=== PATIENT | female | born 1940 | race Caucasian/White ===

== ENCOUNTER 2019-01-05 17:41 | Inpatient (IN) | payer MEDICARE ==
--- NOTE | 2019-01-05 18:53 | RAD ---
PORTABLE CHEST: 01/05/19 HISTORY: Mental status change. COMPARISON: 02/14/18. Heart size is upper normal and stable. Vascular markings are mildly prominent and stable. No infiltr ate or significant effusion. IMPRESSION: No acute finding or significant change. POS: [facility]
[2019-01-05 18:58] LABS: Bilirubin Negative (Negative); Blood, Urine Moderate (Negative); Clarity TURBID (Clear); Glucose, Urine (Dipstick) Negative (Negative); Leukocyte Large (Negative); Nitrite Negative (Negative); Protein, Urine (Dipstick) 100 mg/dL (Neg-Trace); Specific Gravity, Urine 1.018 (1.002-1.036)
[2019-01-05 19:03] LABS: Pathc Cast-AUWi Flag 28.77 (0-2.49); Yeast-AUWi Flag 175.1 (0-25.0)
[2019-01-05 19:16] LABS: Bacteria/HPF 1+ HPF (None Seen); Yeast-All Forms None Seen HPF (None Seen)
[2019-01-05 19:17] LABS: Hyaline Casts/LPF 0-3 HYALINE CAST LPF (0-3 Hyaline)
--- NOTE | 2019-01-05 19:26 | CT ---
CT HEAD WITHOUT CONTRAST: 01/05/19 Multiple axial tomograms obtained through head without IV enhancement. INDICATION: Mental status change. Ventricles have normal size and position. Mild cortical atrophy. Mild chronic ischemic white matter c hange. No infarct, mass or hemorrhage seen. The sinuses and mastoids are clear. IMPRESSION: No acute findings. POS: [facility]
[2019-01-05 19:27] LABS: #Eosinphils 0.1 thou/uL (0.0-0.7); #Lymphocytes 1.5 thou/uL (1.20-3.40); #Monocytes 1.4 thou/uL (0.11-0.59); #Neutrophils 6.7 thou/uL (1.40-6.50); %Basophils 0.4 % (0.0-1.0); %Eosinophils 1.2 % (0.0-10.0); %Lymphocytes 15.6 % (21.0-51.0); %Monocytes 13.9 % (0.0-10.0); %Neutrophils 68.9 % (42.0-75.0); Hemoglobin 14.4 g/dL (12.0-16.0); Mean Corpuscular HGB CONC 33.1 g/dL (32.0-36.0); Mean Corpuscular Hemoglobin 32.4 pg (27.0-31.0); Mean Corpuscular Volume 98.1 fL (78.0-98.0); Mean Platelet Volume 8.2 fL (7.4-10.4); Platelet Count 213 thou/uL (130-400); RBC Distribution Width 11.8 % (11.5-14.5); Red Blood Cell (RBC) Count 4.45 mill/uL (4.20-5.40); White Blood Cell (WBC) Count 9.7 thou/uL (4.8-10.8)
[2019-01-05 19:48] LABS: ALT (SGPT) Less than 7 U/L (8-55); AST (SGOT) 22 U/L (5-34); Albumin 3.9 g/dL (3.4-4.8); Alkaline Phosphatase 104 U/L (40-150); Anion Gap 16 mmol/L (10-20); BUN (Urea Nitrogen) 29 mg/dL (9.8-20.1); Bilirubin, Total 0.7 mg/dL (0.2-1.2); Calc. Creatinine Clearance 0 mL/min (70-130); Carbon Dioxide 25 mmol/L (23-31); Chloride 105 mmol/L (98-107); Estimated GFR-MDRD 46; Glucose 77 mg/dL (83-110); Potassium 3.9 mmol/L (3.5-5.1); Protein, Total 7.9 g/dL (6.0-8.3); Sodium 142 mmol/L (136-145)
[2019-01-05] MEDS ORDERED: cefTRIAXone\\ROCEPHIN 1 GM VIAL ONE (19:59)
[2019-01-05] MEDS ORDERED: Carbidopa/Levodopa 25-100 mg Tablet PO SCH (20:15)
[2019-01-06] MEDS ORDERED: Ondansetron PF 4 MG/2 ML Vial IVP PRN (00:03)
[2019-01-06] MEDS ORDERED: Ondansetron ODT 4 MG TAB SL PRN (00:03)
[2019-01-06 00:34] VITALS: BMI 19.5
[2019-01-06] MEDS: Sodium Chloride 0.9% 1,000 ML IV SCH ×2 (00:42→06:22)
[2019-01-06] MEDS ORDERED: Calcium Carbonate 500 MG ChewTAB PO PRN (09:46)
[2019-01-06] MEDS ORDERED: Bisacodyl 10 MG SUPP PR PRN (09:46)
[2019-01-06] MEDS ORDERED: Acetaminophen 325 MG TAB PO PRN (09:46)
[2019-01-06] MEDS ORDERED: Acetaminophen 650 MG Suppository PR PRN (09:46)
[2019-01-06] MEDS: Dextrose 5 %-0.45 % NaCl 1,000 ML IV SCH ×3 (10:27→22:14)
--- NOTE | 2019-01-06 12:07 | RAD ---
KUB: History: Abdominal pain and tenderness. FINDINGS: The bowel gas pattern appears nonobstructed with a mild amount of stool present within the colon. A r ound calcification in the right upper quadrant of the abdomen is most likely on the basis of a large gallstone. There are marked arthritic changes of the spine. Post-operative changes of both hips. IMPRESSION: 1. Probable gallstone. Ultrasound would be recommended for assessment. 2. No evidence of obstruction. POS: [facility]
--- NOTE | 2019-01-06 14:09 | ULT ---
RENAL ULTRASOUND: INDICATION: A 78-year-old female with recurrent urinary tract infections. FINDINGS: The left kidney is not visualized. The patient could not tolerate positioning for the exam. The imaged right kidney demonstrates a length of 12.2 cm, and there is mild hydronephrosis. There is moderate distention of the urinary bladder. IMPRESSION: 1. Nonvisualization of the left kidney. The patient could not tolerate positioning for the exam. 2. The right kidney reveals prominence of the renal pelvic region to indicate mild hydronephrosis. Superimposed parapelvic cyst formation may also be present. 3. Moderate distention of the urinary bladder. POS: [facility]
[2019-01-06] MEDS ORDERED: Labetalol HCl 100 MG/20 ML VIAL SLOW IVP PRN (14:36)
--- NOTE | 2019-01-06 15:15 | HP ---
CHIEF COMPLAINT: Altered mentation. HISTORY OF PRESENT ILLNESS: The patient is a 78-year-old white female with recurrent UTIs, Parkinson disease, hypertension, and hyperlipidemia, currently at [facility] inpatient rehabilitation, was sent to the emergency room for evaluation for altered mentation. The patient was admitted at the inpatient rehabilitation approximately 2 weeks ago. She has a history of fall with fracture of the left hip in February of last year requiring ORIF. At the rehab, she was diagnosed with a Proteus UTI and was started on ciprofloxacin 3 days ago. She also had confusion and was started on risperidone 0.25 mg b.i.d. at the same time. Blood pressures were running on the higher side at the rehab requiring addition of amlodipine. Mentation progressively got worse over the last 24 hours, for which she was sent to the emergency room for evaluation. At this time, not much information is available from the patient. The family is at the bedside. No fever, chills, fall, nausea, vomiting is reported. In the emergency room, initial vital signs showed temperature 99.2, respirations of 19, pulse rate of 82 with a blood pressure of 129/78 with O2 saturation of 95% on 2 L nasal cannula. Urinalysis showed greater than 50 wbc's with 1+ bacteria. She received 1 g ceftriaxone with IV fluid and routine dose of carbidopa and levodopa at 9:00 p.m. last night. Her EKG in the emergency room showed sinus rhythm with nonspecific ST-T wave changes. Her troponins were negative. PAST MEDICAL HISTORY: 1. Parkinson disease, followed by Dr. Woodruff at [facility]. 2. Hypertension. 3. Diabetes mellitus type 2. 4. Recurrent UTIs. 5. History of fall with left hip fracture last year. 6. Chronic right hip fracture. 7. History of urinary retention. 8. Physical deconditioning. PAST SURGICAL HISTORY: 1. Partial hysterectomy. 2. Left ankle fracture surgery in 1996. 3. Right hip surgery in 2016. 4. Left hip surgery in February of 2018. ALLERGIES: THE PATIENT IS ALLERGIC TO PENICILLIN. CURRENT MEDICATIONS: At the inpatient rehabilitation: 1. Fosamax 70 mg every week. 2. Amantadine 100 mg three times a day. 3. Amlodipine 10 mg daily. 4. Aspirin 81 mg daily. 5. Lipitor 10 mg at bedtime. 6. Calcium with vitamin D b.i.d. 7. Carbidopa and levodopa 25/100 two tablets four times a day. 8. Ciprofloxacin 500 mg b.i.d. 9. Clonidine as needed. 10. Vitamin B12 1000 mcg daily. 11. Lovenox 40 mg daily. 12. Pepcid 20 mg daily. 13. Tradjenta 5 mg daily. 14. Lisinopril 5 mg daily. 15. Metformin 500 mg daily. 16. Metoprolol tartrate 50 mg b.i.d. 17. MiraLAX daily. 18. Risperidone 0.25 mg b.i.d. SOCIAL HISTORY: As discussed above. She used to live with her in [place]. No alcohol, tobacco, or drug use. She makes her own decision with the help of her family. FAMILY HISTORY: Negative for heart disease or diabetes per review of record. REVIEW OF SYSTEMS: Cannot be reliably obtained from the patient due to current cognitive status. PHYSICAL EXAMINATION: VITAL SIGNS: As discussed above. GENERAL: A 78-year-old female with generalized tremors. HEENT: Head is atraumatic, normocephalic. Sclerae anicteric. Oral patches in the upper palate noted. Dry mucous membranes. NECK: Supple. No JVD. No neck stiffness. LUNGS: Showed diminished air entry at bases. No wheezing or rales. HEART: S1, S2 present. Regular. No rubs or gallops appreciated. 2/6 systolic murmur over the mitral area. ABDOMEN: Soft. Bowel sounds present. No rebound or guarding. No costovertebral angle tenderness. EXTREMITIES: No edema or calf tenderness. NEUROLOGY: The patient follows commands to some extent. There is generalized coarse tremors which are involuntary. Rest of the examination could not be reliably done due to current clinical condition. PSYCHIATRY: The patient is alert, awake, and follows commands to some extent. SKIN: Warm and dry. LYMPH NODES: No palpable lymph nodes in the neck. PERIPHERAL VASCULAR: Radial pulses palpable bilaterally. MUSCULOSKELETAL: No joint swelling or tenderness. LABORATORY FINDINGS: CBC showed WBC 9.7 with hemoglobin 14.4, hematocrit 43.6, and platelet of 213. Chemistry showed sodium 142, potassium 3.9, chloride 105, bicarb 25, BUN 31, creatinine 1.23, baseline creatinine 0.74. Urinalysis showed greater than 50 wbc's with 1+ bacteria. Urine cultures from last March is positive for the same strain of Proteus mirabilis. Chest x-ray by my review was negative for infiltrate or edema. EKG by my review as discussed above. CT scan of the brain was negative for acute findings. IMPRESSION: 1. Toxic metabolic encephalopathy, multifactorial. 2. Parkinson disease with dyskinesia. 3. Recurrent urinary tract infections with Proteus mirabilis since March of 2018. 4. Diabetes mellitus type 2. 5. Hypertension. 6. Oral candidiasis. 7. Acute kidney injury on chronic kidney disease stage 2. 8. Dehydration. 9. Vitamin B12 deficiency, on replacement. 10. Hyperlipidemia. 11. Hypertension. 12. Generalized weakness with recurrent falls with hip fractures. 13. Penicillin allergy. PLAN: The patient will be monitored on the medical floor. We will discontinue Sinemet, Risperdal, as well as ciprofloxacin. We will resume Sinemet once dystonia improves. We will consult Infectious Disease, Dr. Galindo due to recurrent Proteus UTI. We will get a KUB and renal ultrasound. We will check postvoid residual. Frequent neuro checks. Consult physical therapy, occupation therapy and speech. IV ceftriaxone for UTI. DVT prophylaxis with Lovenox. We will add nystatin for oral thrush. Plan of care was discussed with the patient and the family at the bedside. They stated understanding. Job ID: [id number] MTDD
[2019-01-06] MEDS: Nystatin 500,000 UNITS/5 ML UDCUP SSW SCH ×3 (15:45→22:10)
[2019-01-06] MEDS: Fluconazole In NaCl,Iso-Osm 100 MG in Admixture Fee 1 EACH IVPB SCH (17:40)
[2019-01-06] MEDS: Carbidopa/Levodopa 25-100 mg Tablet PO SCH ×3 (18:13→22:10)
[2019-01-06] MEDS: cefTRIAXone\\ROCEPHIN 1 GM in Sodium Chloride 0.9% 100 ML IVPB SCH (22:14)
[2019-01-07 04:43] LABS: #Eosinphils 0.2 thou/uL (0.0-0.7); #Monocytes 1.1 thou/uL (0.11-0.59); #Neutrophils 7.1 thou/uL (1.40-6.50); %Basophils 0.5 % (0.0-1.0); %Eosinophils 1.7 % (0.0-10.0); %Lymphocytes 10.4 % (21.0-51.0); %Monocytes 12.1 % (0.0-10.0); %Neutrophils 75.3 % (42.0-75.0); Hemoglobin 14.6 g/dL (12.0-16.0); Mean Corpuscular HGB CONC 31.8 g/dL (32.0-36.0); Mean Corpuscular Hemoglobin 31.5 pg (27.0-31.0); Mean Corpuscular Volume 99.3 fL (78.0-98.0); Mean Platelet Volume 8.1 fL (7.4-10.4); Platelet Count 179 thou/uL (130-400); RBC Distribution Width 11.9 % (11.5-14.5); Red Blood Cell (RBC) Count 4.63 mill/uL (4.20-5.40); White Blood Cell (WBC) Count 9.4 thou/uL (4.8-10.8)
[2019-01-07 05:09] LABS: ALT (SGPT) 24 U/L (8-55); AST (SGOT) 21 U/L (5-34); Albumin 3.6 g/dL (3.4-4.8); Alkaline Phosphatase 88 U/L (40-150); Anion Gap 14 mmol/L (10-20); BUN (Urea Nitrogen) 10 mg/dL (9.8-20.1); Bilirubin, Total 0.5 mg/dL (0.2-1.2); Calc. Creatinine Clearance 61 mL/min (70-130); Calcium 8.9 mg/dL (7.8-10.44); Carbon Dioxide 23 mmol/L (23-31); Chloride 107 mmol/L (98-107); Estimated GFR-MDRD 81; Globulin 3.9 g/dL (2.4-3.5); Glucose 141 mg/dL (83-110); Magnesium 1.3 mg/dL (1.6-2.6); Potassium 3.2 mmol/L (3.5-5.1); Protein, Total 7.5 g/dL (6.0-8.3); Sodium 141 mmol/L (136-145)
[2019-01-07 05:10] LABS: Phosphorus 1.6 mg/dL (2.3-4.7)
[2019-01-07 05:57] LABS: Vitamin B12 Greater than 2000 pg/mL (211-911)
[2019-01-07] MEDS ORDERED: Potassium Phosphate 14 MMOL in Sodium Chloride 0.9% 250 ML 250 ML IVPB SCH (06:45)
[2019-01-07] MEDS: Dextrose 5 %-0.45 % NaCl 1,000 ML IV SCH ×3 (07:36→20:47)
[2019-01-07] MEDS ORDERED: Magnesium Sulfate 4 GM in Sodium Chloride 0.9% 250 ML 250 ML IVPB SCH (08:00)
[2019-01-07] MEDS: Enoxaparin Sodium 30 MG/0.3 ML SYRINGE SC SCH (08:46)
[2019-01-07] MEDS: Carbidopa/Levodopa 25-100 mg Tablet PO SCH ×5 (08:46→20:29)
[2019-01-07] MEDS: Nystatin 500,000 UNITS/5 ML UDCUP SSW SCH ×4 (08:46→20:31)
[2019-01-07] MEDS ORDERED: Magnesium 2 GM/50 ML 2 GM in Premix Bag 1 BAG IVPB SCH (16:30)
[2019-01-07] MEDS: Fluconazole In NaCl,Iso-Osm 100 MG in Admixture Fee 1 EACH IVPB SCH (17:28)
[2019-01-07] MEDS: cefTRIAXone\\ROCEPHIN 1 GM in Sodium Chloride 0.9% 100 ML IVPB SCH (20:29)
--- NOTE | 2019-01-07 23:22 | PRG ---
DATE OF SERVICE: 01/07/2019 SUBJECTIVE: The patient was seen and examined at the bedside. Dyskinesia improving. The patient failed swallow evaluation and is currently n.p.o. The patient was evaluated by Palliative Care. No other overnight events. No fevers or chills reported. REVIEW OF SYSTEMS: Cannot be reliably obtained from the patient due to current cognitive status. OBJECTIVE: VITAL SIGNS: Temperature 97.5, pulse 94, blood pressure 140/87, respirations 16, and O2 saturation 95% on room air. GENERAL: A 78-year-old female in no apparent distress. LUNGS: Clear to auscultation bilaterally. No wheezing, rales, or rhonchi. No accessory muscle use. HEART: S1 and S2 present. Regular rate and rhythm. No murmurs, rubs, or gallops appreciated. ABDOMEN: Soft, nontender. Bowel sounds present. EXTREMITIES: No edema or calf tenderness. NEUROLOGIC: Unchanged. PSYCHIATRY: The patient is alert, awake, follows commands to some extent. Detailed neurological examination could not be done due to current cognitive status. LABORATORY DATA: Lab findings; creatinine down to 0.7 from 1.23. Vitamin B12 greater than 2000. Folic acid 16.5, magnesium 1.3, phosphorus 1.6, potassium 3.2, and sodium 141. Urinalysis showed greater than 50 wbc's. Urine culture shows gram-negative latanya. Renal ultrasound showed mild right hydronephrosis with suspected parapelvic cyst. The bladder was moderately distended. KUB by my review was negative. IMPRESSION: 1. Toxic metabolic encephalopathy, multifactorial, improving. 2. Parkinson disease with significant dyskinesia, improving. 3. Recurrent urinary tract infection, secondary to Proteus mirabilis since 03/2018. 4. Diabetes mellitus type 2. 5. Hypertension. 6. Oral candidiasis, unable to tolerate nystatin swish and swallow. 7. Acute kidney injury on chronic kidney disease stage 2, improving. 8. History of vitamin B12 deficiency. 9. Dehydration. 10. Hypertension. 11. Hyperlipidemia. 12. Penicillin allergy. 13. Swallow dysfunction. 14. Generalized deconditioning. 15. Generalized weakness with recurrent falls with hip fracture. 16. Electrolyte abnormalities including hypokalemia, hypophosphatemia, and hypomagnesemia. PLAN: Palliative care input was appreciated. We will continue IV fluids along with fluconazole. Carbidopa/levodopa will be continued at one tablet four times a day per the patient's primary neurologist instruction. We will recheck labs in a.m. We will replace all the electrolytes. Plan of care was discussed with the patient's son at the bedside. Code status remains full code. The patient is unstable for discharge. She will require 2 to 3 more days for stabilization. Job ID: [id number]
[2019-01-08 06:20] LABS: #Basophils 0.1 thou/uL (0.0-0.2); #Eosinphils 0.2 thou/uL (0.0-0.7); #Monocytes 1.1 thou/uL (0.11-0.59); #Neutrophils 6.3 thou/uL (1.40-6.50); %Basophils 0.6 % (0.0-1.0); %Eosinophils 2.8 % (0.0-10.0); %Lymphocytes 11.6 % (21.0-51.0); %Monocytes 12.9 % (0.0-10.0); Hemoglobin 15.6 g/dL (12.0-16.0); Mean Corpuscular HGB CONC 32.2 g/dL (32.0-36.0); Mean Corpuscular Hemoglobin 32.1 pg (27.0-31.0); Mean Corpuscular Volume 99.7 fL (78.0-98.0); Mean Platelet Volume 8.5 fL (7.4-10.4); Platelet Count 175 thou/uL (130-400); Red Blood Cell (RBC) Count 4.85 mill/uL (4.20-5.40); White Blood Cell (WBC) Count 8.7 thou/uL (4.8-10.8)
[2019-01-08 06:41] LABS: ALT (SGPT) Less than 7 U/L (8-55); AST (SGOT) 21 U/L (5-34); Albumin 3.6 g/dL (3.4-4.8); Alkaline Phosphatase 92 U/L (40-150); Anion Gap 15 mmol/L (10-20); BUN (Urea Nitrogen) 9 mg/dL (9.8-20.1); Bilirubin, Total 0.5 mg/dL (0.2-1.2); Calc. Creatinine Clearance 70 mL/min (70-130); Calcium 9.1 mg/dL (7.8-10.44); Carbon Dioxide 20 mmol/L (23-31); Chloride 108 mmol/L (98-107); Estimated GFR-MDRD Greater than 90; Glucose 127 mg/dL (83-110); Magnesium 1.7 mg/dL (1.6-2.6); Potassium 3.4 mmol/L (3.5-5.1); Protein, Total 7.6 g/dL (6.0-8.3); Sodium 140 mmol/L (136-145)
[2019-01-08 06:45] LABS: Phosphorus 1.7 mg/dL (2.3-4.7)
[2019-01-08] MEDS: Carbidopa/Levodopa 25-100 mg Tablet PO SCH ×4 (08:42→21:29)
[2019-01-08] MEDS: Enoxaparin Sodium 30 MG/0.3 ML SYRINGE SC SCH (08:42)
[2019-01-08] MEDS: Nystatin 500,000 UNITS/5 ML UDCUP SSW SCH ×4 (08:43→21:26)
[2019-01-08] MEDS ORDERED: Magnesium Sulfate 2 GM in Sodium Chloride 0.9% 100 ML IVPB SCH (09:30)
[2019-01-08] MEDS ORDERED: Magnesium 2 GM/50 ML 2 GM in Premix Bag 1 BAG IVPB SCH (10:30)
[2019-01-08] MEDS ORDERED: Dextrose 5 %-0.45 % NaCl 1,000 ML IV SCH (10:57)
[2019-01-08] MEDS ORDERED: Amlodipine 5 MG TAB PO SCH (11:45)
[2019-01-08] MEDS ORDERED: Aspirin 81 mg Enteric Coated Tablet PO SCH (11:45)
[2019-01-08] MEDS ORDERED: Senokot S 8.6-50 MG TAB PO SCH (11:45)
[2019-01-08] MEDS: Fluconazole In NaCl,Iso-Osm 100 MG in Admixture Fee 1 EACH IVPB SCH (16:48)
[2019-01-08] MEDS: cefTRIAXone\\ROCEPHIN 1 GM in Sodium Chloride 0.9% 100 ML IVPB SCH (21:26)
[2019-01-08] MEDS: Senokot S 8.6-50 MG TAB PO SCH (21:29)
[2019-01-08] MEDS: Atorvastatin Calcium 10 MG TAB PO SCH (21:29)
[2019-01-08] MEDS: Amlodipine 5 MG TAB PO SCH (21:29)
[2019-01-08] MEDS: Dextrose 5 %-0.45 % NaCl 1,000 ML IV SCH (22:20)
--- NOTE | 2019-01-08 22:40 | PDOC.PN ---
- Subjective Encounter Start Date: 01/08/19 Encounter Start Time: 10:15 Patient seen and examined for AMS. Mentation improving. Passed swallow test. No new complaints. No overnight events - Objective Resuscitation Status - Order Detail: 01/06/19 09:46 Resuscitation Status Routine Resuscitation Status: FULL: Full Resuscitation MAR Reviewed: Yes Vital Signs & Weight: Vital Signs (12 hours) Temp Pulse Resp BP BP Pulse Ox 01/08/19 21:29 106 H 144/82 H 01/08/19 16:34 154/89 H 01/08/19 16:00 98.1 F 95 16 165/90 H 94 L 01/08/19 12:07 106 H 165/80 H 01/08/19 11:52 94 L 01/08/19 11:04 97.9 F 106 H 16 165/80 H 92 L Weight Admit Weight 124 lb 9.6 oz Weight 124 lb 9.6 oz I&O: 01/07/19 01/08/19 01/09/19 06:59 06:59 06:59 Intake Total 1300 2200 1155 Output Total 1150 850 450 Balance 150 1350 705 Result Diagrams: 01/08/19 05:42 01/08/19 05:42 Additional Labs: Accuchecks 01/08/19 01/08/19 01/08/19 22:13 16:04 11:05 POC Glucose 155 H 117 H 146 H Phys Exam - Physical Examination Constitutional: NAD Respiratory: no wheezing, no rhonchi Cardiovascular: RRR, no rub Gastrointestinal: soft, non-tender, positive bowel sounds Musculoskeletal: no edema Dx/Plan - Plan DVT proph w/SCDs IMPRESSION: 1. Toxic metabolic encephalopathy, multifactorial, improving. 2. Parkinson disease with significant dyskinesia, improving. 3. Recurrent urinary tract infection, secondary to Proteus mirabilis since 2017. 4. Diabetes mellitus type 2. 5. Hypertension. 6. Oral candidiasis. 7. Acute kidney injury on chronic kidney disease stage 2, improving. 8. History of vitamin B12 deficiency. 9. Dehydration. 10. Hypertension. 11. Hyperlipidemia. 12. Penicillin allergy. 13. Swallow dysfunction. 14. Generalized deconditioning. 15. Generalized weakness with recurrent falls with hip fracture. 16. Electrolyte abnormalities including hypokalemia, hypophosphatemia, and hypomagnesemia. PLAN: Reduce IVF Started on Mech soft diet Resume Sinemet at home dose Amantadine on hold AM labs Replace electrolytes Resume other home meds Cont IV Atbx Review of Systems - Review of Systems Respiratory: negative: Cough, Dry, Shortness of Breath, Hemoptysis, SOB with Excertion, Pleuritic Pain, Sputum, Wheezing Cardiovascular: negative: chest pain, palpitations, orthopnea, paroxysmal nocturnal dyspnea, edema, light headedness, other Gastrointestinal: negative: Nausea, Vomiting, Abdominal Pain, Diarrhea, Constipation, Melena, Hematochezia, Other - Medications/Allergies Allergies/Adverse Reactions: Allergies Allergy/AdvReac Type Severity Reaction Status Date / Time Penicillins Allergy Verified 01/06/19 00:01 Medications: Current Medications Acetaminophen (Tylenol) 650 mg RI Q4H PRN PRN Reason: Headache/Fever/Mild Pain (1-3) Acetaminophen (Tylenol) 650 mg PO Q4H PRN PRN Reason: Headache/Fever/Mild Pain (1-3) Amlodipine Besylate (Norvasc) 5 mg PO BID [facility] Last Admin: 01/08/19 21:29 Dose: 5 mg Aspirin (Ecotrin) 81 mg PO DAILY [facility] Atorvastatin Calcium (Lipitor) 10 mg PO HS [facility] Last Admin: 01/08/19 21:29 Dose: 10 mg Bisacodyl (Dulcolax) 10 mg RI DAILYPRN PRN PRN Reason: Constipation Calcium Carbonate (Tums) 1,000 mg PO Q4H PRN PRN Reason: Heartburn or Indigestion Carbidopa/Levodopa (Sinemet 25-100) 2 tab PO QID [facility] Last Admin: 01/08/19 21:29 Dose: 2 tab Enoxaparin Sodium (Lovenox) 30 mg SC 0900 [facility] Last Admin: 01/08/19 08:42 Dose: 30 mg Ceftriaxone Sodium 1 gm/ (Sodium Chloride) 100 mls @ 200 mls/hr IVPB Q24HR [facility] Last Admin: 01/08/19 21:26 Dose: 100 mls Fluconazole/Sodium Chloride 100 mg/ Miscellaneous Medication 50 mls @ 100 mls/ hr IVPB Q24HR [facility] Last Admin: 01/08/19 16:48 Dose: 50 mls Dextrose/Sodium Chloride (D5 1/2 Ns) 1,000 mls @ 50 mls/hr IV .Q20H [facility] Labetalol HCl (Normodyne) 10 mg SLOW IVP Q4H PRN PRN Reason: Systolic BP > 180 Nystatin (Mycostatin) 500,000 units SSW QID [facility] Last Admin: 01/08/19 21:26 Dose: 500,000 units Polyethylene Glycol (Miralax) 17 gm PO DAILY [facility] Senna/Docusate Sodium (Senokot S) 1 tab PO BID [facility] Last Admin: 01/08/19 21:29 Dose: 1 tab Sodium Chloride (Flush - Normal Saline) 10 ml IVF PRN PRN PRN Reason: Saline Flush
--- NOTE | 2019-01-09 01:55 | CON ---
DATE OF CONSULTATION: REASON FOR CONSULTATION: Parkinson's disease, altered mental status with positive urine culture. HISTORY OF PRESENT ILLNESS: A 78-year-old, with a history of Parkinson's disease, hypertension, type 2 diabetes, and recurrent UTIs with urinary retention, who was at [facility] and developed altered mental status. She had been on treatment for Proteus urinary tract infection with ciprofloxacin started three days before. She developed confusional state, was given Risperdal. The mental status became worse over time and she was sent to the emergency room. On arrival, temperature 99.2, respirations 19, pulse 82, BP 129/78, and O2 saturation 95%. Urinalysis was abnormal. She was given ceftriaxone. The impression was toxic metabolic encephalopathy, multifactorial. Currently, patient is awake, alert, and oriented, feels better. Denies headaches, visual symptoms, sore throat, odynophagia, or dysphagia. She is voiding with an indwelling Gooden catheter. Denies any abdominal pain. No diarrhea. PAST MEDICAL HISTORY: Includes Parkinson's disease, hypertension, type 2 diabetes, recurrent UTIs, fall with left hip fracture and right hip fracture with fixation, urinary retention in the past. PAST SURGICAL HISTORY: Hysterectomy, ankle fracture, as well as right hip surgery and left hip surgery. ALLERGIES: PENICILLIN WITH RASH. SOCIAL HISTORY: Never smoker. FAMILY HISTORY: Noncontributory. CURRENT MEDICATIONS: 1. Tylenol. 2. Norvasc. 3. Ecotrin. 4. Lipitor. 5. Dulcolax. 6. Tums. 7. Sinemet. 8. Ceftriaxone. 9. Fluconazole. PHYSICAL EXAMINATION: VITAL SIGNS: Blood pressure has been normal, within the range of the hospital stay. BP 160/80, pulse is 106, respirations 16, and O2 sat 92% to 94%. SKIN EXAM: Not remarkable. She has peripheral IV access and a Gooden catheter. GENERAL: Some element of temporal wasting. She is in no distress. HEENT: Ocular movements conjugate. No cheesh-na teeth remaining in place. NECK: Supple. No jugular vein distention. LUNGS: Symmetric, clear breath sounds. HEART: S1 and S2 with a soft aortic murmur. Regular rate. ABDOMEN: Soft, nondistended, or tender. No ascites. No bladder distention. MUSCULOSKELETAL: No joint inflammatory activity. EXTREMITIES: Pulses 1+ in dorsalis pedis. Moves extremities equally. LABORATORY DATA: She had a renal ultrasound with moderate distention of urinary bladder. Brain CT, no acute findings. Microbiology with gram-negative latanya in the urine. She had P mirabilis previously with a broad susceptibility profile. This has been present going back to March 2018. ASSESSMENT: 1. Parkinson's disease. 2. History of urinary retention. 3. Urinary tract infection with abnormal mental status. DISCUSSION: Differential diagnosis includes abnormal mental status due to an invasive urinary tract infection versus abnormal mental status due to the treatment for the UTI with quinolone. Quinolones are known to be associated with delirium, and that is a very likely possibility for this patient. Nonetheless, she does have urinary retention and this will have to be addressed. Will need eventual voiding trial and may end up with the need for in and out catheterization. There is a broad range of drugs that can be used to treat her UTI, and I would avoid quinolones, maybe switch her to trimethoprim/sulfamethoxazole for discharge planning and treat probably no more than 10 days. Job ID: [id number]
[2019-01-09 07:09] LABS: #Eosinphils 0.1 thou/uL (0.0-0.7); #Lymphocytes 1.4 thou/uL (1.20-3.40); #Monocytes 1.4 thou/uL (0.11-0.59); #Neutrophils 8.5 thou/uL (1.40-6.50); %Basophils 0.3 % (0.0-1.0); %Eosinophils 1.2 % (0.0-10.0); %Lymphocytes 12.4 % (21.0-51.0); %Monocytes 11.7 % (0.0-10.0); %Neutrophils 74.3 % (42.0-75.0); Hemoglobin 15.6 g/dL (12.0-16.0); Mean Corpuscular HGB CONC 32.1 g/dL (32.0-36.0); Mean Corpuscular Hemoglobin 31.7 pg (27.0-31.0); Mean Corpuscular Volume 98.6 fL (78.0-98.0); Platelet Count 180 thou/uL (130-400); Red Blood Cell (RBC) Count 4.93 mill/uL (4.20-5.40); White Blood Cell (WBC) Count 11.5 thou/uL (4.8-10.8)
[2019-01-09 07:26] LABS: Anion Gap 17 mmol/L (10-20); BUN (Urea Nitrogen) 8 mg/dL (9.8-20.1); Calc. Creatinine Clearance 64 mL/min (70-130); Calcium 9.3 mg/dL (7.8-10.44); Carbon Dioxide 22 mmol/L (23-31); Chloride 109 mmol/L (98-107); Estimated GFR-MDRD 86; Glucose 134 mg/dL (83-110); Magnesium 1.9 mg/dL (1.6-2.6); Potassium 3.5 mmol/L (3.5-5.1); Sodium 144 mmol/L (136-145)
[2019-01-09 07:31] LABS: Phosphorus 1.4 mg/dL (2.3-4.7)
[2019-01-09] MEDS: Aspirin 81 mg Enteric Coated Tablet PO SCH (08:54)
[2019-01-09] MEDS: Amlodipine 5 MG TAB PO SCH ×2 (08:54→20:25)
[2019-01-09] MEDS: Senokot S 8.6-50 MG TAB PO SCH ×2 (08:55→20:25)
[2019-01-09] MEDS: Carbidopa/Levodopa 25-100 mg Tablet PO SCH ×4 (08:55→20:23)
[2019-01-09] MEDS: Enoxaparin Sodium 30 MG/0.3 ML SYRINGE SC SCH (08:56)
[2019-01-09] MEDS: Polyethylene Glycol 3350 17 GM Packet PO SCH (08:56)
[2019-01-09] MEDS: Nystatin 500,000 UNITS/5 ML UDCUP SSW SCH ×4 (09:04→20:28)
[2019-01-09] MEDS ORDERED: Potassium Phosphate 15 MMOL in Sodium Chloride 0.9% 250 ML 250 ML IVPB SCH (09:15)
[2019-01-09] MEDS: K-Phos Neutral 250 MG TAB PO SCH ×2 (12:09→17:15)
[2019-01-09] MEDS: Propranolol 10 MG TAB PO SCH ×2 (14:44→20:28)
[2019-01-09] MEDS: Fluconazole In NaCl,Iso-Osm 100 MG in Admixture Fee 1 EACH IVPB SCH (17:15)
[2019-01-09] MEDS: Dextrose 5 %-0.45 % NaCl 1,000 ML IV SCH (17:16)
[2019-01-09] MEDS: Atorvastatin Calcium 10 MG TAB PO SCH (20:25)
[2019-01-09] MEDS: cefTRIAXone\\ROCEPHIN 1 GM in Sodium Chloride 0.9% 100 ML IVPB SCH (20:27)
--- NOTE | 2019-01-09 22:06 | PDOC.PN ---
- Subjective Encounter Start Date: 01/09/19 Encounter Start Time: 10:15 Patient seen and examined for AMS. No new complaints. No overnight events - Objective Resuscitation Status - Order Detail: 01/06/19 09:46 Resuscitation Status Routine Resuscitation Status: FULL: Full Resuscitation MAR Reviewed: Yes Vital Signs & Weight: Vital Signs (12 hours) Temp Pulse Resp BP BP Pulse Ox 01/09/19 21:21 94 L 01/09/19 21:14 153/85 H 01/09/19 20:25 97 174/95 H 01/09/19 20:00 97.8 F 100 18 174/95 H 94 L 01/09/19 16:00 98.1 F 97 14 135/79 93 L 01/09/19 11:32 98.2 F 92 15 160/90 H 94 L Weight Admit Weight 124 lb 9.6 oz Weight 124 lb 9.6 oz I&O: 01/08/19 01/09/19 01/10/19 06:59 06:59 06:59 Intake Total 2200 1155 1150 Output Total 850 450 Balance 9788 697 4475 Result Diagrams: 01/09/19 06:12 01/09/19 06:12 Additional Labs: Accuchecks 01/09/19 01/09/19 01/09/19 20:30 15:31 10:42 POC Glucose 140 H 165 H 148 H 01/09/19 01/08/19 07:01 22:13 POC Glucose 133 H 155 H Microbiology 01/05/19 18:32 Urine Straight Catheter Urine Culture - Final Gram Negative [facility] Tests 01/09/19 06:12 Phosphorus 1.4 L Phys Exam - Physical Examination Constitutional: NAD Respiratory: no wheezing, no rhonchi Cardiovascular: RRR, no rub Gastrointestinal: soft, non-tender, positive bowel sounds Musculoskeletal: no edema Neurological: moves all 4 limbs resting tremors Dx/Plan - Plan DVT proph w/lovenox, DVT proph w/SCDs IMPRESSION: 1. Toxic metabolic encephalopathy, multifactorial, improving. 2. Parkinson disease with significant dyskinesia, improving. 3. Recurrent urinary tract infection, secondary to Proteus mirabilis since 2017. 4. Diabetes mellitus type 2. 5. Hypertension. 6. Oral candidiasis. 7. Acute kidney injury on chronic kidney disease stage 2, improving. 8. History of vitamin B12 deficiency. 9. Dehydration. 10. Hypertension. 11. Hyperlipidemia. 12. Penicillin allergy. 13. Swallow dysfunction. 14. Generalized deconditioning. 15. Generalized weakness with recurrent falls with hip fracture. 16. Electrolyte abnormalities including hypokalemia, hypophosphatemia, and hypomagnesemia. PLAN: Cont Sinemet at current dose Check Postvoid Amantadine on hold AM labs Replace Phosphorus Cont IV Ceftriaxone Await urine cultures Add low dose Inderal due to elevated BP SNF eval Review of Systems - Review of Systems Respiratory: negative: Cough, Dry, Shortness of Breath, Hemoptysis, SOB with Excertion, Pleuritic Pain, Sputum, Wheezing Cardiovascular: negative: chest pain, palpitations, orthopnea, paroxysmal nocturnal dyspnea, edema, light headedness, other - Medications/Allergies Allergies/Adverse Reactions: Allergies Allergy/AdvReac Type Severity Reaction Status Date / Time Penicillins Allergy Verified 01/06/19 00:01 Medications: Current Medications Acetaminophen (Tylenol) 650 mg MD Q4H PRN PRN Reason: Headache/Fever/Mild Pain (1-3) Acetaminophen (Tylenol) 650 mg PO Q4H PRN PRN Reason: Headache/Fever/Mild Pain (1-3) Amlodipine Besylate (Norvasc) 5 mg PO BID [facility] Last Admin: 01/09/19 20:25 Dose: Not Given Aspirin (Ecotrin) 81 mg PO DAILY [facility] Last Admin: 01/09/19 08:54 Dose: 81 mg Atorvastatin Calcium (Lipitor) 10 mg PO HS [facility] Last Admin: 01/09/19 20:25 Dose: Not Given Bisacodyl (Dulcolax) 10 mg MD DAILYPRN PRN PRN Reason: Constipation Calcium Carbonate (Tums) 1,000 mg PO Q4H PRN PRN Reason: Heartburn or Indigestion Carbidopa/Levodopa (Sinemet 25-100) 2 tab PO QID [facility] Last Admin: 01/09/19 20:23 Dose: Not Given Enoxaparin Sodium (Lovenox) 30 mg SC 0900 [facility] Last Admin: 01/09/19 08:56 Dose: 30 mg Ceftriaxone Sodium 1 gm/ (Sodium Chloride) 100 mls @ 200 mls/hr IVPB Q24HR [facility] Last Admin: 01/09/19 20:27 Dose: 100 mls Fluconazole/Sodium Chloride 100 mg/ Miscellaneous Medication 50 mls @ 100 mls/ hr IVPB Q24HR [facility] Last Admin: 01/09/19 17:15 Dose: 50 mls Dextrose/Sodium Chloride (D5 1/2 Ns) 1,000 mls @ 50 mls/hr IV .Q20H [facility] Last Admin: 01/09/19 17:16 Dose: 1,000 mls Labetalol HCl (Normodyne) 10 mg SLOW IVP Q4H PRN PRN Reason: Systolic BP > 180 Nystatin (Mycostatin) 500,000 units SSW QID [facility] Last Admin: 01/09/19 20:28 Dose: Not Given Phosphorus (Kphos Neutral) 250 mg PO TID-WM [facility] Last Admin: 01/09/19 17:15 Dose: 250 mg Polyethylene Glycol (Miralax) 17 gm PO DAILY [facility] Last Admin: 01/09/19 08:56 Dose: 17 gm Propranolol HCl (Inderal) 10 mg PO TID [facility] Last Admin: 01/09/19 20:28 Dose: Not Given Senna/Docusate Sodium (Senokot S) 1 tab PO BID [facility] Last Admin: 01/09/19 20:25 Dose: Not Given Sodium Chloride (Flush - Normal Saline) 10 ml IVF PRN PRN PRN Reason: Saline Flush
[2019-01-10] MEDS: Propranolol 10 MG TAB PO SCH ×3 (08:14→21:58)
[2019-01-10] MEDS: K-Phos Neutral 250 MG TAB PO SCH ×3 (08:14→17:40)
[2019-01-10] MEDS: Enoxaparin Sodium 30 MG/0.3 ML SYRINGE SC SCH (08:14)
[2019-01-10] MEDS: Aspirin 81 mg Enteric Coated Tablet PO SCH (08:14)
[2019-01-10] MEDS: Amlodipine 5 MG TAB PO SCH ×2 (08:14→21:54)
[2019-01-10] MEDS: Polyethylene Glycol 3350 17 GM Packet PO SCH (08:14)
[2019-01-10] MEDS: Nystatin 500,000 UNITS/5 ML UDCUP SSW SCH ×4 (08:15→21:58)
[2019-01-10] MEDS: Senokot S 8.6-50 MG TAB PO SCH ×2 (08:18→21:53)
[2019-01-10] MEDS: Carbidopa/Levodopa 25-100 mg Tablet PO SCH ×4 (08:18→21:58)
[2019-01-10 08:23] LABS: Anion Gap 14 mmol/L (10-20); BUN (Urea Nitrogen) 9 mg/dL (9.8-20.1); Calc. Creatinine Clearance 68 mL/min (70-130); Calcium 9.5 mg/dL (7.8-10.44); Carbon Dioxide 24 mmol/L (23-31); Chloride 110 mmol/L (98-107); Estimated GFR-MDRD Greater than 90; Glucose 124 mg/dL (83-110); Magnesium 1.7 mg/dL (1.6-2.6); Potassium 3.5 mmol/L (3.5-5.1); Sodium 144 mmol/L (136-145)
[2019-01-10 08:36] LABS: Phosphorus 2.4 mg/dL (2.3-4.7)
[2019-01-10] MEDS: Fluconazole In NaCl,Iso-Osm 100 MG in Admixture Fee 1 EACH IVPB SCH (17:39)
[2019-01-10] MEDS: cefTRIAXone\\ROCEPHIN 1 GM in Sodium Chloride 0.9% 100 ML IVPB SCH (21:11)
[2019-01-10] MEDS: Atorvastatin Calcium 10 MG TAB PO SCH (21:56)
--- NOTE | 2019-01-10 23:13 | PDOC.PN ---
- Subjective Encounter Start Date: 01/10/19 Encounter Start Time: 10:00 Patient seen and examined for Encephalopathy. No new complaints. No overnight events - Objective Resuscitation Status - Order Detail: 01/06/19 09:46 Resuscitation Status Routine Resuscitation Status: FULL: Full Resuscitation MAR Reviewed: Yes Vital Signs & Weight: Vital Signs (12 hours) Temp Pulse Resp BP BP Pulse Ox 01/10/19 21:54 81 130/72 01/10/19 19:35 98.2 F 83 18 130/72 92 L Weight Admit Weight 124 lb 9.6 oz Weight 124 lb 9.6 oz I&O: 01/09/19 01/10/19 01/11/19 06:59 06:59 06:59 Intake Total 1155 1150 640 Output Total 450 Balance 705 1150 640 Result Diagrams: 01/09/19 06:12 01/10/19 07:51 Additional Labs: Accuchecks 01/10/19 04:43 POC Glucose 119 H Phys Exam - Physical Examination Constitutional: NAD Respiratory: no wheezing, no rhonchi Cardiovascular: RRR, no rub Gastrointestinal: soft, non-tender, positive bowel sounds Musculoskeletal: no edema Dx/Plan - Plan DVT proph w/SCDs IMPRESSION: 1. Toxic metabolic encephalopathy, multifactorial, improving. 2. Parkinson disease with significant dyskinesia, improving. 3. Recurrent urinary tract infection, secondary to Proteus mirabilis since 2017. 4. Diabetes mellitus type 2. 5. Hypertension. 6. Oral candidiasis. 7. Acute kidney injury on chronic kidney disease stage 2, improving. 8. History of vitamin B12 deficiency. 9. Dehydration. 10. Hypertension. 11. Hyperlipidemia. 12. Penicillin allergy. 13. Swallow dysfunction. 14. Generalized deconditioning. 15. Generalized weakness with recurrent falls with hip fracture. 16. Electrolyte abnormalities including hypokalemia, hypophosphatemia, and hypomagnesemia. PLAN: Cont Sinemet Postvoid <200 Amantadine on hold DC Fluconazole Cont IV Ceftriaxone Cont low dose Inderal due to elevated BP SNF eval in progress Stable for discharge Review of Systems - Review of Systems Respiratory: negative: Cough, Dry, Shortness of Breath, Hemoptysis, SOB with Excertion, Pleuritic Pain, Sputum, Wheezing Cardiovascular: negative: chest pain, palpitations, orthopnea, paroxysmal nocturnal dyspnea, edema, light headedness, other - Medications/Allergies Allergies/Adverse Reactions: Allergies Allergy/AdvReac Type Severity Reaction Status Date / Time Penicillins Allergy Verified 01/06/19 00:01 Medications: Current Medications Acetaminophen (Tylenol) 650 mg ID Q4H PRN PRN Reason: Headache/Fever/Mild Pain (1-3) Acetaminophen (Tylenol) 650 mg PO Q4H PRN PRN Reason: Headache/Fever/Mild Pain (1-3) Amlodipine Besylate (Norvasc) 5 mg PO BID [facility] Last Admin: 01/10/19 21:54 Dose: 5 mg Aspirin (Ecotrin) 81 mg PO DAILY [facility] Last Admin: 01/10/19 08:14 Dose: 81 mg Atorvastatin Calcium (Lipitor) 10 mg PO HS [facility] Last Admin: 01/10/19 21:56 Dose: 10 mg Bisacodyl (Dulcolax) 10 mg ID DAILYPRN PRN PRN Reason: Constipation Calcium Carbonate (Tums) 1,000 mg PO Q4H PRN PRN Reason: Heartburn or Indigestion Carbidopa/Levodopa (Sinemet 25-100) 2 tab PO QID [facility] Last Admin: 01/10/19 21:58 Dose: 2 tab Enoxaparin Sodium (Lovenox) 30 mg SC 0900 [facility] Last Admin: 01/10/19 08:14 Dose: 30 mg Ceftriaxone Sodium 1 gm/ (Sodium Chloride) 100 mls @ 200 mls/hr IVPB Q24HR [facility] Last Admin: 01/10/19 21:11 Dose: 100 mls Dextrose/Sodium Chloride (D5 1/2 Ns) 1,000 mls @ 50 mls/hr IV .Q20H [facility] Last Admin: 01/09/19 17:16 Dose: 1,000 mls Labetalol HCl (Normodyne) 10 mg SLOW IVP Q4H PRN PRN Reason: Systolic BP > 180 Nystatin (Mycostatin) 500,000 units SSW QID [facility] Last Admin: 01/10/19 21:58 Dose: 500,000 units Phosphorus (Kphos Neutral) 250 mg PO TID-[facility] Last Admin: 01/10/19 17:40 Dose: 250 mg Polyethylene Glycol (Miralax) 17 gm PO DAILY [facility] Last Admin: 01/10/19 08:14 Dose: 17 gm Propranolol HCl (Inderal) 10 mg PO TID [facility] Last Admin: 01/10/19 21:58 Dose: 10 mg Senna/Docusate Sodium (Senokot S) 1 tab PO BID [facility] Last Admin: 01/10/19 21:53 Dose: 1 tab Sodium Chloride (Flush - Normal Saline) 10 ml IVF PRN PRN PRN Reason: Saline Flush
[2019-01-10] MEDS: Dextrose 5 %-0.45 % NaCl 1,000 ML IV SCH (23:47)
[2019-01-11] MEDS: Dextrose 5 %-0.45 % NaCl 1,000 ML IV SCH (00:26)
[2019-01-11 07:47] VITALS: BP 145/80; TEMP 98.3
[2019-01-11] MEDS: Carbidopa/Levodopa 25-100 mg Tablet PO SCH ×2 (08:42→12:34)
[2019-01-11] MEDS: Amlodipine 5 MG TAB PO SCH (08:43)
[2019-01-11] MEDS: Propranolol 10 MG TAB PO SCH ×2 (08:43→12:34)
[2019-01-11] MEDS: Senokot S 8.6-50 MG TAB PO SCH (08:43)
[2019-01-11] MEDS: K-Phos Neutral 250 MG TAB PO SCH ×2 (08:43→12:34)
[2019-01-11] MEDS: Aspirin 81 mg Enteric Coated Tablet PO SCH (08:43)
[2019-01-11] MEDS: Polyethylene Glycol 3350 17 GM Packet PO SCH (08:44)
[2019-01-11] MEDS: Enoxaparin Sodium 30 MG/0.3 ML SYRINGE SC SCH (09:42)
[2019-01-11] MEDS: Nystatin 500,000 UNITS/5 ML UDCUP SSW SCH ×2 (12:34→12:35)
--- NOTE | 2019-01-11 14:45 | DIS ---
DATE OF ADMISSION: 01/05/2019 DATE OF DISCHARGE: 01/11/2019 DISCHARGE DISPOSITION: To [facility]. The patient was seen and examined on the day of discharge. Denies any new complaints. No chest pain, shortness of breath, palpitations, or focal deficit reported. ALLERGIES: PENICILLIN. DISCHARGE MEDICATIONS: 1. Bactrim single strength one tablet b.i.d. for next 5 days. 2. Inderal 10 mg three times daily. Hold for systolic blood pressure less than 110. 3. Lisinopril 5 mg daily. Hold for systolic blood pressure less than 130. 4. Amlodipine 5 mg daily. Hold for systolic blood pressure less than 130. 5. MiraLAX daily. 6. Metformin 500 mg daily. 7. Pepcid 20 mg daily. 8. Multivitamin one tablet daily. 9. Clonidine 0.1 mg q.h.s. p.r.n. for systolic blood pressure more than 180. 10. Carbidopa/levodopa 25/100 two tablets four times a day. 11. Calcium with vitamin D daily. 12. Lipitor 10 mg q.h.s. 13. Aspirin 81 mg daily. 14. Fosamax 70 mg daily. INPATIENT DIRECTOR PAYMENT: Infectious Disease, Dr. Galindo. BRIEF HOSPITAL COURSE: The patient is a 78-year-old female with Parkinson disease and recurrent UTIs, was brought in from [facility] on January 05, 2019, with altered mentation. She was recently diagnosed with UTI and was started on ciprofloxacin. She was also started on Risperdal due to altered mentation. She currently takes carbidopa/levodopa 100/25 two tablets four times a day along with amantadine. Please refer to the history and physical for further details. The patient was admitted to the hospital with a diagnosis of altered mentation along with significant dyskinesia. She was started on IV ceftriaxone for UTI. Ciprofloxacin was discontinued. Risperdal was discontinued. Carbidopa/levodopa was held until the mentation improved. Amantadine was discontinued per primary neurologist, Dr. Woodruff. Please note that I discussed with Dr. Woodruff on the day of admission, who recommended above changes. 24 to 48 hours later, mentation gradually improved. She has been started back on carbidopa/levodopa. She had electrolyte imbalances, which were replaced. Over the last 48 hours, the patient has done well. She was evaluated by Infectious Disease, Dr. Galindo, who recommended Bactrim. DIAGNOSTIC TESTS: CT scan of the brain was negative for acute findings. Renal ultrasound showed moderate distention of the urinary bladder with mild hydronephrosis of the right kidney. Chest x-ray was negative for infiltrate. The patient will benefit from a postvoid residual once or twice daily. SIGNIFICANT LABORATORY DATA: Potassium at discharge 3.5, lowest potassium was 3.2. Phosphorus at discharge 2.4, lowest phosphorus was 1.4. Magnesium at discharge 1.7, lowest magnesium 1.3. Vitamin B12 greater than 2000, folic acid 16.5, TSH 0.3. Creatinine on admission was 1.1, at discharge 0.63. Repeat basic metabolic profile with magnesium and phosphorus is recommended in 2 to 3 days. Primary care physician advised to follow. FINAL DIAGNOSES: 1. Toxic metabolic encephalopathy, multifactorial. 2. Recurrent urinary tract infection secondary to Proteus mirabilis. Urine culture this admission showed gram-negative latanya, less than 5000 CFU. 3. Parkinson disease with significant dyskinesia. Amantadine has been discontinued. 4. Diabetes mellitus, type 2. 5. Acute kidney injury on chronic kidney disease, stage 2. 6. Hypertension. 7. Oral candidiasis. 8. History of vitamin B12 deficiency. Vitamin B12 can be discontinued at this time due to greater than level of 2000. 9. Dehydration. 10. Hypertension. 11. Hyperlipidemia. 12. Penicillin allergy. 13. Swallow dysfunction. 14. Generalized weakness with recurrent falls causing hip fractures. 15. Electrolyte abnormalities including hypokalemia, hypophosphatemia, and hypomagnesemia. 16. Generalized deconditioning. Total time coordinating the discharge of this patient was 37 minutes. Job ID: [id number]
--- NOTE | 2019-01-11 16:25 | PRG ---
DATE OF SERVICE: 01/11/2019 SUBJECTIVE: Ms. Lira is feeling well. She is still somewhat disoriented. Denies any chest pain or cough. No abdominal pain or diarrhea, and she has been afebrile. OBJECTIVE: LUNGS: Clear. HEART: S1 and S2, regular rate. ABDOMEN: Soft. Not distended. LABORATORY DATA: White cell count 11.5, hemoglobin 15, and platelets 180. Sodium 140, creatinine 0.63. ASSESSMENT AND DISCUSSION: Parkinson disease, urinary retention, urinary tract infection, abnormal mental status. Again, possibility of invasive UTI versus abnormal mental status due to quinolone adverse reaction is the main consideration. The patient to be discharged on Bactrim. Urinary retention may continue to be representing the problem down the road, which will lead to readmission for the same complication and she may end up requiring in and out catheterization or an indwelling Gooden catheter. Job ID: [id number]
== END 2019-01-11 17:08 | DRG 689 ==
LOC: ERS 17:41 → SURG A 22:59 → T4-A 01-09 23:42
PROVIDERS: ADMIT Hospitalist; ATTEND Hospitalist
DX: N39.0 Urinary tract infection, site not specified (principal); G92 Toxic encephalopathy; N17.9 Acute kidney failure, unspecified; B37.0 Candidal stomatitis; G20 Parkinson's disease; E11.22 Type 2 diabetes mellitus with diabetic chronic kidney disease; E86.0 Dehydration; I12.9 Hypertensive chronic kidney disease with stage 1 through stage 4 chronic kidney disease, or unspecified chronic kidney disease; N18.2 Chronic kidney disease, stage 2 (mild); G24.9 Dystonia, unspecified; E53.8 Deficiency of other specified B group vitamins; E78.5 Hyperlipidemia, unspecified; R33.9 Retention of urine, unspecified; E87.6 Hypokalemia; E83.39 Other disorders of phosphorus metabolism; E83.42 Hypomagnesemia; R13.10 Dysphagia, unspecified; B96.89 Other specified bacterial agents as the cause of diseases classified elsewhere; R53.1 Weakness; R29.6 Repeated falls; Z88.0 Allergy status to penicillin; Z79.84 Long term (current) use of oral hypoglycemic drugs; Z79.82 Long term (current) use of aspirin; Z79.899 Other long term (current) drug therapy
CPT/HCPCS: 36415; 36416; 51701; 70450; 71045; 74018; 76770; 80048; 80053; 81003; 81015; 82140; 82607; 82746; 83735; 84100; 84443; 84484; 85025; 87086; 93005; 96361; 96365; A4353; J0696; J1450; J1650; J3475; J7042; J7050